=== PATIENT | female | born 1985 | race Caucasian/White ===

== ENCOUNTER 2017-08-04 09:51 | Outpatient (CLI) | payer BC, OTHER ==
[~2017-08-04] VITALS: Ht 165.1 cm; Wt 77.5 kg
[~2017-08-04 09:51] MED LIST: PREN1TAB49 PO
[2017-08-04 10:07] VITALS: Ht 165.1 cm; Wt 77.5 kg
[2017-08-04 10:08] VITALS: BP 107/67; PULSE 75
[2017-08-04] MEDS ORDERED: ONDANSETRON 4 MG INJ IV STA (10:15)
[2017-08-04] MEDS ORDERED: SOD CHLORIDE 0.9% 1,000 ML IV SCH (10:30)
--- NOTE | 2017-08-04 10:59 | RADRPT ---
PROCEDURE: US OB biophysical profile. CLINICAL INDICATION: decreased movements, labor pain TECHNIQUE: Multiple sonographic images of the pelvis were obtained. The images were reviewed on a PACS workstation. COMPARISON: No prior studies are available for comparison. FINDINGS: There is a single viable intrauterine gestation. Cardiac activity is present with 135 beats per min schuyler. There is a vertex presentation. The placenta is anterior. There is no evidence of placental abruption. There is a normal amount of amniotic fluid with an ACROLINA = 8.3 cm. Biophysical profile: movement 2/2 tone 2/2. breathing 2/2 [place] 2/2 Total 06/20 RPTAT: AA . IMPRESSION: Normal biophysical profile. . .Rik Lizarraga MD, Date Time Electronically viewed and signed by .Rik Lizarraga MD, MD on 08/04/2017 10:58 .S/
--- NOTE | 2017-08-04 12:16 | PN ---
Triage Information Date/Time Reason for visit: Uterine contractions Weeks of Gestation 37w 3d /Para Objective Vital Signs Date Time Temp Pulse Resp B/P Pulse Ox O2 Delivery O2 Flow Rate FiO2 08/04/17 10:08 98.2 75 107/67 Heart Rate Comments reactive Contractions: >10 Minutes Apart Results/Medications Medications Current Medications Sodium Chloride (NS) 1,000 ml @ 125 mls/hr Q8H IV Last administered on t 10:26; Admin Dose 125 MLS/HR; Start 08/04/17 at 10:30 Imaging Results BPP 8/8, CAR[place] 8.3cm Disposition: Discharge Assessment/Plan 32 y/o at 37w 3d with UCs and N/V -UCs improved with IVFs, not in active labor -declined antiemetic -discharge home with labor precautions -f/u with OB ANNETTE KIRKPATRICK Aug 04, 2017 12:16
--- NOTE | 2017-08-04 13:26 | TRIAGE ---
OB Triage Datetime Report Generated by CPN: 08/04/2017 13:26 Datetime: 08/04/2017 11:57 Stage of : OB Triage Datetime: 08/04/2017 11:45 Exam By: S LANETTE Datetime: 08/04/2017 10:56 Labor Evaluation Frequency: 6-10 Monitor Mode: External Duration (sec)2399: 60-80 Quality: Mild Pattern: Normal: <= 5 Contractions in 10 Minutes Resting Tone [place]: Relaxed Heart Rate FHR Baseline Rate: 125 Monitor Mode: External US Variability: Moderate 6-25 bpm Accelerations: 10X10 Decelerations: None Category: Category I Pain Assessment Pain Scale: 4 Pain Presence: Intermittent Pain Type: Cramping Pain Location: Perineum Pain Goal: 3 Pain Relief Measures: Comfort Measures Datetime: 08/04/2017 10:12 Stage of : OB Triage Datetime: 08/04/2017 09:58 Vaginal Exam Dilatation (cms): 1.5 Effacement (%): 60 Station: -2 Exam By: S LANETTE Vaginal Bleeding: None Cervix, Consistency: Soft Cervix, Position: Posterior Presentation 'A': Cephalic Datetime: 08/04/2017 09:55 Stage of : OB Triage Assessment Type: Triage EGA: 37.3 Maternal Assessment Level of Consciousness: Fully Conscious DTR's/Clonus: DTRs 2+; No Clonus Headache: Denies Blurred Vision: No Respiratory Effort: Unlabored; Regular Rhythm; Equal Expansion Breath Sounds, Left: Clear and Equal Breath Sounds, Right: Clear and Equal RUQ Epigastric Pain: Denies Facial Edema: None Temperature Route: Axillary Fall Risk Assessment History of Falling: (0) No Secondary Diagnosis: (0) No Ambulatory Aid: (0) Bedrest/Nurse Assist IV Therapy: (0) No Gait: (0) Normal/Bedrest/Immobile Mental Status: (0) Oriented to Own Ability Fall Score: 0 Fall Risk Score Definition: No Risk: No action required Labor Evaluation Frequency: 0 Monitor Mode: External Resting Tone [place]: Relaxed Heart Rate FHR Baseline Rate: 130 Monitor Mode: External US Variability: Minimal - Undetectable to <=5 bpm Decelerations: None Pain Assessment Pain Scale: 4 Pain Presence: Constant Pain Type: Pressure Pain Location: Perineum Pain Goal: 3 Pain Relief Measures: Comfort Measures Datetime: 08/04/2017 09:54 Time of Arrival: 08/04/2017 09:42 Arrived By: Ambulatory Arrived From: Home Chief Complaint: C/O UC'S Q 5 MIN, DENIES BLEEDING, OR LEAKING. N/V THIS AM, H/A LAST NIGHT, SLIG HTLY LIGHT HEADED THIS AM Movement: Present Contractions: Occasional Rupture of Membranes: Denies Vaginal Bleeding: None Vaginal Discharge: Present Recent Sexual Intercouse: Denies Abdominal Trauma: Not Applicable Patient Complaints: Headache; Visual Disturbance Time Provider Notified: 08/04/2017 10:12 Provider Notified: GUNNAR Initial Plan: MONITOR, BPP, IV HYDRATION, ZOFRAN
== END 2017-08-04 12:10 | disposition home or self-care (01) ==
LOC: OBT 09:51 → L-D 09:52 → OBT 12:10
PROVIDERS: ATTEND Specialist
DX: O62.9 Abnormality of forces of labor, unspecified (principal); Z3A.37 37 weeks gestation of pregnancy
CPT/HCPCS: 36415; 76818; 96360; J7030; Z7500; G0463

== ENCOUNTER 2017-08-10 23:45 | Inpatient (IN) | payer BC ==
[~2017-08-10] VITALS: Ht 165.1 cm; Wt 80.0 kg
[2017-08-11 01:21] VITALS: BP 113/71; PULSE 78; RESP 20; Ht 165.1 cm; Wt 80.0 kg
[2017-08-11] MEDS ORDERED: OXYTOCIN 30 UNITS/LR 500 ML IV PRN ×2 (03:00→11:30)
[2017-08-11] MEDS ORDERED: CARBOPROST 250 MCG INJ IM PRN ×2 (03:00→11:30)
[2017-08-11] MEDS ORDERED: LACTATED RINGER'S 1,000 ML IV PRN (03:00)
[2017-08-11] MEDS ORDERED: MISOPROSTOL 200 MCG TAB PR PRN ×2 (03:00→11:30)
[2017-08-11] MEDS ORDERED: OXYTOCIN 30 UNITS/LR 500 ML IV SCH ×2 (03:00)
[2017-08-11] MEDS ORDERED: LIDOCAINE 1% (MPF) 30 ML INJ INJ PRN (03:00)
[2017-08-11] MEDS ORDERED: BUTORPHANOL 2 MG INJ IV PRN (03:00)
[2017-08-11] MEDS ORDERED: METHYLERGONOVINE 0.2 MG INJ IM PRN ×2 (03:00→11:30)
[2017-08-11 03:20] LABS: BASOPHILS % 0.2 % (0.0-2.0); EOSINOPHILS % 0.3 % (0.0-7.0); HEMATOCRIT 33.4 % (37.0-47.0); HEMOGLOBIN 11.9 g/dl (12.0-16.0); LYMPHOCYTES # 2.7 10^3/ul (0.8-2.9); LYMPHOCYTES % 18.3 % (15.0-51.0); MEAN CORPUSCULAR HEMOGLOBIN 32.4 pg (29.0-33.0); MEAN CORPUSCULAR HGB CONC 35.6 g/dl (32.0-37.0); MEAN PLATELET VOLUME 11.1 fl (7.4-10.4); MONOCYTE # 0.9 10^3/ul (0.3-0.9); MONOCYTES % 5.9 % (0.0-11.0); NEUTROPHIL # 10.8 10^3/ul (1.6-7.5); NEUTROPHILS % 74.8 % (39.0-77.0); PLATELET COUNT 207 10^3/UL (140-415); RED BLOOD COUNT 3.67 10^6/ul (4.20-5.40); RED CELL DISTRIBUTION WIDTH 13.1 % (11.5-14.5); WHITE BLOOD COUNT 14.5 10^3/ul (4.8-10.8)
[2017-08-11 03:41] LABS: PROTIME 13.2 Sec (12.2-14.2)
[2017-08-11 03:42] LABS: PARTIAL THROMBOPLASTIN TIME 26.7 Sec (25.0-35.0)
[2017-08-11] MEDS: LACTATED RINGER'S 1,000 ML IV SCH ×2 (03:55→04:14)
--- NOTE | 2017-08-11 04:29 | RADRPT ---
PROCEDURE: US OB. CLINICAL INDICATION: Bleeding TECHNIQUE: Multiple sonographic images of the pelvis were obtained. The images were reviewed on a PACS workstation. COMPARISON: Biophysical profile ultrasound of 08/04/2017 FINDINGS: There is a single live intrauterine gestation. Cardiac activity is present with 131 beats per minut e. There is a cephalic position. The placenta is anterior and grade 2. There is no evidence for an abruption. IMPRESSION: Single live intrauterine gestation. No evidence of placental abruption. RPTAT: HJES .Aftab Orr MD, MD Date Time Electronically viewed and signed by .Aftab Orr MD, on 08/11/2017 04:28 .S/
--- NOTE | 2017-08-11 05:24 | TRIAGE ---
OB Triage Datetime Report Generated by CPN: 08/11/2017 05:23 Datetime: 08/11/2017 05:17 Vaginal Exam Dilatation (cms): 7.0 Effacement (%): 90 Station: -1 Exam By: MSAAD RN Datetime: 08/11/2017 05:10 Labor Evaluation Frequency: 1-3 Monitor Mode: External Duration (sec)2399: 60-90 Quality: Strong Pattern: Normal: <= 5 Contractions in 10 Minutes Resting Tone [place]: Relaxed Interventions: Side to Side; Oxygen Applied; IV Bolus Heart Rate FHR Baseline Rate: 120 Monitor Mode: External US FHR Baseline Changes: No Baseline Change Variability: Minimal - Undetectable to <=5 bpm Accelerations: 15X15 Decelerations: Early; Variable Category: Category II Pain Assessment Pain Scale: 10 Pain Presence: Intermittent Pain Type: Contraction Pain Location: Abdomen Datetime: 08/11/2017 05:02 Vaginal Exam Dilatation (cms): 5.0 Effacement (%): 80 Station: -2 Exam By: SADI HAGAN Vaginal Bleeding: Normal Show Cervix, Consistency: Soft Cervix, Position: Anterior Presentation 'A': Cephalic Datetime: 08/11/2017 04:59 Pain Assessment Pain Scale: 10 Pain Presence: Intermittent Pain Type: Contraction Pain Location: Abdomen Pain Relief Measures: Comfort Measures Datetime: 08/11/2017 04:10 Labor Evaluation Frequency: 1-2.5 Monitor Mode: Internal Duration (sec)2399: 60-80 Quality: Strong Pattern: Tachysystole: > 5 Contractions in 10 Minutes Intensity IUP (mmHg): 30-50 Resting Tone [place]: Relaxed Resting Tone IUP (mmHg): 15-20 Heart Rate FHR Baseline Rate: 125 Monitor Mode: Internal Scalp Electrode Variability: Moderate 6-25 bpm Accelerations: 15X15 Decelerations: None Category: Category I Pain Assessment Pain Scale: 5 Pain Presence: Intermittent Pain Type: Contraction; Pressure Pain Location: Abdomen Pain Assessment Comments: PT STATES PAIN IS DECREASING WITH PAIN MEDICATION Datetime: 08/11/2017 03:42 Assessment Type: Admission Assessment Vaginal Bleeding: Scant Maternal Assessment Level of Consciousness: Fully Conscious DTR's/Clonus: DTRs 2+; No Clonus Headache: Denies Blurred Vision: No Respiratory Effort: Unlabored; Regular Rhythm; Equal Expansion Breath Sounds, Left: Clear and Equal Breath Sounds, Right: Clear and Equal Nausea/Vomiting: Denies RUQ Epigastric Pain: Denies Lower Extremities Edema: Bilateral Lower Extremities Degree: 1+ Upper Extremities Edema: None Degree: None Facial Edema: None Fall Risk Assessment History of Falling: (0) No Secondary Diagnosis: (0) No Ambulatory Aid: (0) Bedrest/Nurse Assist IV Therapy: (20) Yes Gait: (0) Normal/Bedrest/Immobile Mental Status: (0) Oriented to Own Ability Fall Score: 20 Fall Risk Score Definition: No Risk: No action required Labor Evaluation Frequency: 1-2 Monitor Mode: Internal Duration (sec)2399: 60-80 Quality: Strong Pattern: Tachysystole: > 5 Contractions in 10 Minutes Intensity IUP (mmHg): 30-50 Resting Tone [place]: Relaxed Resting Tone IUP (mmHg): 15 Heart Rate FHR Baseline Rate: 125 Monitor Mode: Internal Scalp Electrode Variability: Moderate 6-25 bpm Accelerations: 15X15 Decelerations: None Category: Category I Pain Assessment Pain Scale: 10 Pain Presence: Intermittent Pain Type: Contraction; Pressure Pain Location: Abdomen Pain Assessment Comments: PT STATES SHE ONLY FEELS PAIN WITH CONTRACTIONS AND NOT INBETWEEN CONTRA CTIONS Datetime: 08/11/2017 03:25 Time of Arrival: 08/10/2017 23:43 EGA: 38.2 Arrived By: Stretcher Arrived From: TRIAGE Chief Complaint: CXS SINCE 2129 Movement: Present Contractions: Regular Time Contractions Began: 08/10/2017 21:30 Contractions: Q 2-3 MIN Rupture of Membranes: Denies Vaginal Bleeding: Small Vaginal Discharge: Denies Patient Complaints: None Time Provider Notified: 08/11/2017 00:25 Provider Notified: BROOKLYN Initial Plan: VE, ASSESSMENT, CALL MD FOR ORDERS Datetime: 08/11/2017 03:20 Stage of : OB Triage Maternal Assessment Level of Consciousness: Fully Conscious Labor Evaluation Frequency: 2 Monitor Mode: Internal Duration (sec)2399: 70-90 Pattern: Normal: <= 5 Contractions in 10 Minutes Intensity IUP (mmHg): 40-50 Resting Tone IUP (mmHg): 25 Heart Rate FHR Baseline Rate: 130 Monitor Mode: Internal Scalp Electrode Variability: Minimal - Undetectable to <=5 bpm Accelerations: 10X10 Decelerations: None Category: Category II Pain Assessment Pain Scale: 9 Pain Presence: Intermittent Pain Type: Cramping; Contraction Pain Location: Abdomen Pain Goal: 3 Pain Relief Measures: Comfort Measures Datetime: 08/11/2017 03:10 Vaginal Exam Dilatation (cms): 3.0 Effacement (%): 60 Station: -2 Exam By: Vaginal Bleeding: Scant Datetime: 08/11/2017 03:00 Stage of : OB Triage Maternal Assessment Level of Consciousness: Fully Conscious Labor Evaluation Frequency: 2 Monitor Mode: Internal Duration (sec)2399: 60-80 Intensity IUP (mmHg): 35-40 Resting Tone IUP (mmHg): 0 Heart Rate FHR Baseline Rate: 130 Monitor Mode: Internal Scalp Electrode Variability: Moderate 6-25 bpm Accelerations: 10X10 Decelerations: None Category: Category I Pain Assessment Pain Scale: 9 Pain Presence: Intermittent Pain Type: Cramping; Contraction Pain Location: Abdomen Pain Goal: 3 Pain Relief Measures: Comfort Measures Pain Assessment Comments: BOLUS GOING Datetime: 08/11/2017 02:44 Contraction Comments: DR BROOKLYN, WANTS PT. ADMITTED AND U/S FOR PLACENTA Datetime: 08/11/2017 02:39 Monitor Mode: Internal Contraction Comments: FSE INSERTED BY DR BROOKLYN Datetime: 08/11/2017 02:37 Membrane Status: Ruptured Membranes Rupture Method: Artificial Amniotic Fluid Color: Bloody Amniotic Fluid Amount: Small Datetime: 08/11/2017 02:35 Vaginal Exam Dilatation (cms): 3.0 Exam By: DR BROOKLYN Datetime: 08/11/2017 02:30 Stage of : OB Triage Maternal Assessment Level of Consciousness: Fully Conscious Labor Evaluation Frequency: IRREG Monitor Mode: External Quality: Moderate Pattern: Normal: <= 5 Contractions in 10 Minutes Resting Tone [place]: Relaxed Heart Rate FHR Baseline Rate: PT. MOVING IN BED IN PAIN Monitor Mode: External US Pain Assessment Pain Scale: 9 Pain Presence: Intermittent Pain Type: Cramping; Contraction Pain Location: Abdomen Pain Goal: 3 Pain Relief Measures: Comfort Measures Datetime: 08/11/2017 01:54 Vaginal Exam Dilatation (cms): 1.5 Effacement (%): 60 Station: -2 Exam By: MAINE Vaginal Bleeding: Small Cervix, Consistency: Moderate Cervix, Position: Midposition Datetime: 08/11/2017 01:30 Stage of : OB Triage Maternal Assessment Level of Consciousness: Fully Conscious Headache: Denies Nausea/Vomiting: Denies RUQ Epigastric Pain: Denies Labor Evaluation Frequency: 1-2.5 Monitor Mode: External Duration (sec)2399: 40-70 Quality: Moderate Pattern: Normal: <= 5 Contractions in 10 Minutes Resting Tone [place]: Relaxed Heart Rate FHR Baseline Rate: 135 Monitor Mode: External US Variability: Moderate 6-25 bpm Accelerations: 15X15 Decelerations: Variable Category: Category II Pain Assessment Pain Scale: 9 Pain Presence: Intermittent Pain Type: Cramping; Contraction Pain Location: Abdomen Pain Goal: 3 Pain Relief Measures: Comfort Measures Datetime: 08/11/2017 00:30 Stage of : OB Triage Assessment Type: Triage Maternal Assessment Level of Consciousness: Fully Conscious DTR's/Clonus: DTRs 2+; No Clonus Headache: Denies Blurred Vision: No Respiratory Effort: Unlabored; Regular Rhythm; Equal Expansion Nausea/Vomiting: Denies RUQ Epigastric Pain: Denies Lower Extremities Edema: None Upper Extremities Edema: None Facial Edema: None Temperature Route: Oral Fall Risk Assessment History of Falling: (0) No Secondary Diagnosis: (0) No Ambulatory Aid: (0) Bedrest/Nurse Assist IV Therapy: (0) No Gait: (0) Normal/Bedrest/Immobile Mental Status: (0) Oriented to Own Ability Fall Score: 0 Fall Risk Score Definition: No Risk: No action required Labor Evaluation Frequency: 1-2.5 Monitor Mode: External Duration (sec)2399: 40-70 Quality: Moderate Pattern: Normal: <= 5 Contractions in 10 Minutes Resting Tone [place]: Relaxed Heart Rate FHR Baseline Rate: 135 Monitor Mode: External US Variability: Moderate 6-25 bpm Accelerations: 15X15 Decelerations: Variable Category: Category II Pain Assessment Pain Scale: 7 Pain Presence: Intermittent Pain Type: Cramping; Contraction Pain Location: Abdomen Pain Goal: 3 Pain Relief Measures: Comfort Measures Datetime: 08/10/2017 23:58 Vaginal Exam Dilatation (cms): 1.5 Effacement (%): 60 Station: -2 Exam By: Donnasimrano RN Datetime: 08/04/2017 13:23 Arrived By: Wheelchair Arrived From: Home Rupture of Membranes: Denies Vaginal Discharge: Denies Datetime: 08/04/2017 09:55 EGA: 37.3 Fall Score: 0 Fall Risk Score Definition: No Risk: No action required
[2017-08-11 06:07] LABS: ADD UMIC YES; UR ASCORBIC ACID NEGATIVE (NEGATIVE); UR BILIRUBIN (Dip) NEGATIVE (NEGATIVE); UR BLOOD (Dip) 3+ mg/dL (NEGATIVE); UR CLARITY CLEAR (CLEAR); UR COLOR YELLOW (YELLOW); UR GLUCOSE (Dip) NEGATIVE (NEGATIVE); UR KETONES (Dip) TRACE mg/dL (NEGATIVE); UR LEUKOCYTE ESTERASE (Dip) NEGATIVE Leu/ul (NEGATIVE); UR NITRITE (Dip) NEGATIVE (NEGATIVE); UR RBC 33 /HPF (0-5); UR SPECIFIC GRAVITY (Dip) 1.017 (1.003-1.030); UR TOTAL PROTEIN (Dip) NEGATIVE (NEGATIVE); UR UROBILINOGEN (Dip) NEGATIVE (NEGATIVE)
[2017-08-11] MEDS ORDERED: IBUPROFEN 600 MG TAB PO PRN (06:15)
--- NOTE | 2017-08-11 06:29 | HP ---
Date/Time of Note Date/Time of Note DATE: 08/11/17 TIME: 06:15 OB - History Hx of Present Free Text/Dictation 32 y.o A1 at 38w3d with tetanic uterine contraction with severe RLQ pain with vaginal bleedingin small amount tracing shows minimal variability but had some accelerations initian exam 1-2/60%/-2 , membrane intact reexamined in 2hrs 3-4 80% -2 with more bleeding ARM clear fluid IUPC inserted shows every 2min tracing ok vaginal bleeding stopped u/s neg for abruptio placenta allowed to continue labor Chief Complaint: UC's Estimated Due Date: Aug 22, 2017 : 4 Para: 2 Spontaneous : 1 Therapeutic : 0 Care: Good Care Ultrasounds: Normal mid trimester US Obstetrical Complications: None Medical Complications: None Past Family/Social History * Past Medical, Surgical, Family and Obstetric Histories reviewed from chart. Blood Type: B+ Rubella: immune RPR/VDRL: Negative GBS Status: Negative HBsAG: Negative OB Admission Exam Vital Signs Vital Signs Vital Signs Date Time Temp Pulse Resp B/P Pulse Ox O2 Delivery O2 Flow Rate FiO2 08/11/17 01:21 98.0 78 20 113/71 Room Air Physical Exam HEENT: WNL Heart: Rhythm Normal Lungs: Clear, Equal Abdomen: WNL Extremities: Normal Reflexes: Normal Cervical Dilatation: 4cm Effacement: Other (90%) Station: -2 Membranes: Ruptured Amniotic Fluid: Clear Heart Rate: 140's Accelerations: Accelerations Present Decelerations: No Decelerations Varibility: Minimum Contractions on Admission: < 5 Minutes Apart Intensity: Moderate Last 72 hours Lab Results CBC & BMP 08/11/17 02:55 OB Assessment/Plan Reason for admission: active labor Other Assessment: IUP 38w3d in active labor R/o mild abruptio Plan: Expectant Management CANDI BARAHONA MD Aug 11, 2017 06:25
--- NOTE | 2017-08-11 06:37 | LDN ---
Date/Time of Note Date/Time of Note DATE: 08/11/17 TIME: 06:30 Delivery Summary rapid progress ?abruptio placenta u/s neg Weeks of Gestation 38w3d Placenta Delivered: Spontaneously Meconium: none Episiotomy: No Perineal laceration: 0 Anesthesia type: None Estimated blood loss: 200 Sponge & Needle done & correct: Yes All needle counts correct: Yes Any foreign bodies felt in the: No Problems: Delivery Information Sex Sex: female Apgars 1 Minute: 8 5 Minute: 9 Suctioning Nose & mouth suctioned at carola: Yes Delee suction performed: No Umbilical Cord Umbilical cord with: 3 Vessels Cord presentations: nuchal cord Nuchal cord present X: 2 Cord Blood was obtained: Yes Mother & Baby Disposition Disposition Mom & Baby to Maternity; Good: Yes Mom transferred to: Other () Baby to NICU: No CANDI BARAHONA MD Aug 11, 2017 06:37
[2017-08-11] MEDS ORDERED: OXYCODONE/ASPIRIN (4.88/325) TAB PO PRN ×3 (08:00→11:30)
[2017-08-11] MEDS: OXYCODONE/ASPIRIN (4.88/325) TAB PO PRN ×2 (08:24→09:01)
[2017-08-11] MEDS ORDERED: LANOLIN 7 GM TUBE TOP PRN (11:30)
[2017-08-11] MEDS ORDERED: ZOLPIDEM 5 MG TAB PO PRN (11:30)
[2017-08-11] MEDS ORDERED: WITCH HAZEL/GLYCERIN PAD PR PRN (11:30)
[2017-08-11] MEDS ORDERED: BENZOCAINE 20% 56 ML SPRAY TOP PRN (11:30)
[2017-08-11] MEDS: SENNA/DOCUSATE NA (8.6MG/50MG) TAB PO SCH ×2 (14:00→20:37)
[2017-08-11] MEDS: IBUPROFEN 600 MG TAB PO SCH ×3 (14:26→23:31)
[2017-08-11 14:43] VITALS: BP 100/60; PULSE 75; RESP 18
[2017-08-11 15:00] VITALS: BP 109/65; PULSE 62; RESP 18
[2017-08-11 16:00] VITALS: BP 101/55; PULSE 67; RESP 20
[2017-08-11 19:46] VITALS: BP 117/67; PULSE 71; RESP 18
[2017-08-12] VITALS: BP 110/66; PULSE 77; RESP 18
[2017-08-12 04:00] VITALS: BP 99/55; PULSE 62; RESP 18
[2017-08-12] MEDS: IBUPROFEN 600 MG TAB PO SCH ×4 (05:39→23:48)
[2017-08-12 08:00] VITALS: BP 112/53; PULSE 63; RESP 20
[2017-08-12 09:36] LABS: BASOPHILS % 0.4 % (0.0-2.0); EOSINOPHILS # 0.1 10^3/ul (0.0-0.5); EOSINOPHILS % 0.9 % (0.0-7.0); HEMATOCRIT 29.2 % (37.0-47.0); LYMPHOCYTES # 2.6 10^3/ul (0.8-2.9); MEAN CORPUSCULAR HEMOGLOBIN 31.4 pg (29.0-33.0); MEAN CORPUSCULAR HGB CONC 34.2 g/dl (32.0-37.0); MEAN CORPUSCULAR VOLUME 91.8 fl (82.0-101.0); MONOCYTE # 0.5 10^3/ul (0.3-0.9); MONOCYTES % 5.2 % (0.0-11.0); NEUTROPHIL # 6.8 10^3/ul (1.6-7.5); NEUTROPHILS % 67.2 % (39.0-77.0); PLATELET COUNT 185 10^3/UL (140-415); RED BLOOD COUNT 3.18 10^6/ul (4.20-5.40); RED CELL DISTRIBUTION WIDTH 13.6 % (11.5-14.5); WHITE BLOOD COUNT 10.1 10^3/ul (4.8-10.8)
[2017-08-12] MEDS: SENNA/DOCUSATE NA (8.6MG/50MG) TAB PO SCH ×2 (09:49→21:48)
[2017-08-12 16:29] VITALS: BP 105/74; PULSE 79; RESP 19
[2017-08-12 19:45] VITALS: BP 106/64; PULSE 77; RESP 18
--- NOTE | 2017-08-12 22:37 | PN ---
Date/Time of Note Date/Time of Note DATE: 08/12/17 TIME: 22:35 OB Subjective Subjective Subjective no c/o had bowel movement OB Objective Objective Objective vss afebrile fundus firm lochia min calf neg for tenderness OB Assessment/Plan Other Assessment: stable post vaginal delivery Other plan: d/s home in am CANDI BARAHONA MD Aug 12, 2017 22:37
[2017-08-13 04:00] VITALS: BP 109/65; PULSE 69; RESP 18
[2017-08-13] MEDS: IBUPROFEN 600 MG TAB PO SCH ×3 (05:28→14:50)
[2017-08-13 08:10] VITALS: BP 99/51; PULSE 56; RESP 18
[2017-08-13] MEDS ORDERED: DIPHTH/TET/ACEL PERTUSS (ADULT) 0.5 ML VIAL IM* ONE (09:00)
[2017-08-13] MEDS: SENNA/DOCUSATE NA (8.6MG/50MG) TAB PO SCH (09:00)
--- NOTE | 2017-08-13 14:47 | PD.PPDC ---
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
--- NOTE | 2017-08-13 14:53 | DS ---
Date/Time of Note Date/Time of Note DATE: 08/13/17 TIME: 14:51 Obstetrical Discharge Record Final Diagnosis Final Diagnosis: Term delivered Vaginal Delivery Obstetrical Delivery: Spontaneous Complications Augmentation: No Induction: No Third Trimester Bleeding: Abruptio Rupture of Membranes: No Condition on Discharge Physical Assessment Last Vitals: vss afebrile Voiding: Yes Bowel Movement: Yes Breast: Soft, non-tender Fundus: Firm Episiotomy: n/a Calf Tenderness: No Patient Condition: Stable CANDI BARAHONA MD Aug 13, 2017 14:52
--- NOTE | 2017-08-14 14:46 | CONS ---
Date/Time of Note Date/Time of Note DATE: 08/14/17 TIME: 14:46 Consultation Date/Type/Reason Admit Date/Time Aug 11, 2017 at 02:40 Initial Consult Date 08/12/17 Type of Consultation: Anesthesiology Reason for Consultation follow up 24 HR Interval Summary Free Text/Dictation Pt seen and examined at bedside on 08/12/17 is POD#1 s/p . Pt received Epidural for post op labor pain relief and pain is currently controlled adequately. No N/V/D/MCDANIEL/Numbness in extremities. Will follow. Constitutional: no complaints Exam/Review of Systems Vital Signs Vitals Vital Signs Date Time Temp Pulse Resp B/P Pulse Ox O2 Delivery O2 Flow Rate FiO2 08/13/17 08:10 98.2 56 18 99/51 Room Air Results Result Diagram: 08/12/17 0845 RAUL CRUZ Aug 14, 2017 14:46
== END 2017-08-13 17:27 | disposition home or self-care (01) | DRG 774 ==
LOC: OBT 23:45 → L-D 23:45 → OBT 08-11 02:40 → L-D 08-11 02:40 → PP1 08-11 15:01
PROVIDERS: ADMIT Specialist; ATTEND Specialist
PROC: 10E0XZZ Delivery of Products of Conception, External Approach (ICD-10-PCS; principal; 2017-08-11)
DX: O45.93 Premature separation of placenta, unspecified, third trimester (principal); O69.81X0 Labor and delivery complicated by cord around neck, without compression, not applicable or unspecified; Z3A.38 38 weeks gestation of pregnancy; Z37.0 Single live birth
CPT/HCPCS: 36415; 62319; 76815; 81001; 85025; 85610; 85730; 86592; 86850; 86900; 86901; 86920; 88307; 90715; 99464; G0463; J0595; J2590; J7120